=== PATIENT | female | born 1960 | race Caucasian/White ===

== ENCOUNTER 2019-08-10 14:02 | Outpatient (CLI) | payer MEDICARE, MEDICAID | END 2019-08-10 14:03 | disposition home or self-care (01) | LOC: COV 14:02 | PROVIDERS: ATTEND Family Medicine | DX: R05 Cough (principal); R50.9 Fever, unspecified ==

== ENCOUNTER 2019-11-10 14:09 | Emergency (ER) | payer MEDICAID, MEDICARE ==
[2019-11-10 14:15] VITALS: BP 107/91
--- NOTE | 2019-11-10 14:36 | ED Physician Documentation ---
History of Present Illness - Stated complaint Stated Complaint: GLF - Chief complaint Chief Complaint: General - History obtained from History obtained from: Patient - History of Present Illness Timing: Yesterday Pain level max: 5 Pain level now: 5 - Additonal information Additional information: 59-year-old female presents to the emergency department after falling in the parking lot at a [employer] yesterday. She states that she injured both of her knees, her left hand and her left arm. She states she did strike her head but no loss of consciousness. No vomiting. No headache. No altered mental status. No numbness or tingling. The knees are worse with walking and better with rest. She has an abrasion to the left knee. She also complains of bruising to the left hand and pain to the left humerus. Worse with movement and better with rest. Has not taken anything for pain. Review of Systems Constitutional: denies: Fever, Chills Cardiac: denies: Chest pain / pressure Respiratory: denies: Cough GI: denies: Vomiting, Diarrhea Skin: denies: Rash Musculoskeletal: denies: Neck pain, Back pain Neurologic: denies: Focal weakness, Numbness, Confused, Altered mental status, LOC PD PAST MEDICAL HISTORY - Past Medical History Past Medical History: No - Present Medications Home Medications: Ambulatory Orders Medication Instructions Recorded Confirmed Cholecalciferol (Vitamin D3) 2,000 unit PO DAILY 01/31/13 02/06/14 [Vitamin D] Clonazepam 0.5 mg PO QPM PRN 01/31/13 02/06/14 Hydrocodone/Acetaminophen 1 each PO Q4HR PRN 01/31/13 02/06/14 [Hydrocodon-Acetaminophen 5-325] Ibuprofen [Motrin] 800 mg PO DAILY PRN 01/31/13 02/06/14 Multivitamin [Multivitamins] 1 each PO DAILY 01/31/13 02/06/14 Omeprazole [PriLOSEC] 20 mg PO DAILY PRN 01/31/13 02/06/14 Venlafaxine HCl [Effexor Xr] 75 mg PO DAILY 01/31/13 02/06/14 Venlafaxine HCl [Effexor Xr] 150 mg PO DAILY 01/31/13 02/06/14 estradioL [Divigel] 0.5 mg TOP HS 09/17/13 09/23/14 - Allergies Allergies/Adverse Reactions: Allergies Allergy/AdvReac Type Severity Reaction Status Date / Time hayfever Allergy Intermediate Itching Uncoded 01/31/13 15:24 - Living Situation Living Arrangement: reports: At home - Family History Family history: reports: Non contributory PD ED PE NORMAL - Vitals Vital signs reviewed: Yes - General General: Alert and oriented X 3, No acute distress, Well developed/nourished - HEENT HEENT: Atraumatic (No scalp hematomas. No palpable skull fractures.), PERRL, EOMI, Ears normal, Moist mucous membranes, Pharynx benign, Dentition benign - Neck Neck: Supple, no meningeal sign, No bony TTP - Cardiac Cardiac: RRR, Strong equal pulses - Respiratory Respiratory: No respiratory distress, Clear bilaterally - Abdomen Abdomen: Soft, Non tender, Non distended - Derm Derm: Warm and dry - Extremities Extremities: Other (There is swelling and ecchymosis to the thenar eminence of the left hand. No snuffbox tenderness. No tenderness over the remainder of the. Neurovascular intact. Good range of motion. She is tender over the tibial plateaus of the bilateral knees. There is a small abrasion to the left knee. She) - Neuro Neuro: Alert and oriented X 3, flash developer 2-12 intact, No motor deficit, No sensory deficit - Psych Psych: Normal mood, Normal affect Results - Vitals Vitals: Vital Signs - 24 hr 11/10/19 14:11 Temperature 36.6 C Heart Rate 71 Respiratory 18 Rate Blood Pressure 107/91 H O2 Saturation 100 Oxygen O2 Source Room air - Rads (name of study) Left humerus x-ray Radiology: Prelim report reviewed, EMP read contemporaneously Left hand x-ray Radiology: Prelim report reviewed, EMP read contemporaneously Bilateral knee x-ray Radiology: Prelim report reviewed, EMP read contemporaneously PD MEDICAL DECISION MAKING - ED course Complexity details: reviewed results, re-evaluated patient, considered differential, d/w patient ED course: No acute findings on x-rays. Ambulating well. Tdap given. No evidence of skull fracture, intracranial hemorrhage. No evidence of cervical spine fracture. We will continue supportive care and have her reevaluated by her doctor in 1 week if not better. Patient counseled regarding signs and symptoms for which I believe and urgent re-evaluation would be necessary. Patient with good understanding of and agreement to plan and is comfortable going home at this time This document was made in part using voice recognition software. While efforts are made to proofread this document, sound alike and grammatical errors may occur. Departure - Departure Disposition: 01 Home, Self Care Clinical Impression: Fall Qualifiers: Encounter type: initial encounter Qualified Code(s): W19.XXXA - Unspecified fall, initial encounter Knee contusion Qualifiers: Encounter type: initial encounter Laterality: unspecified laterality Qualified Code(s): S80.00XA - Contusion of unspecified knee, initial encounter Abrasion of knee, left Qualifiers: Encounter type: initial encounter Qualified Code(s): S80.212A - Abrasion, left knee, initial encounter Contusion of hand, left Qualifiers: Encounter type: initial encounter Qualified Code(s): S60.222A - Contusion of left hand, initial encounter Condition: Good Instructions: ED Contusion Soft Tissue Follow-Up: Your,doctor in 1 week [Other] Comments: Your x-rays do not show any acute abnormalities today. Return if you worsen. Follow-up with your doctor for further care. You can use Motrin or Tylenol as needed for pain. Discharge Date/Time: 11/10/19 16:12
[2019-11-10] MEDS ORDERED: TETANUS/DIPHTHERIA/PERTUSSIS 0.5 ML SYRINGE IM ONE (14:51)
--- NOTE | 2019-11-10 15:15 | XRAY Report ---
PROCEDURE: Hand 3 View LT INDICATIONS: fall, hand pain TECHNIQUE: 3 views of the hand(s) acquired. COMPARISON: X-ray humerus 11/10/2019 FINDINGS: Bones: No fractures or dislocations. No suspicious bony lesions. Soft tissues: No suspicious soft tissue calcifications. IMPRESSION: No visualized acute fracture or dislocation. However, occult injury cannot be excluded. Recommend toya rt interval imaging follow-up in 7-10 days as clinically indicated for additional evaluation. Reviewed by: Shellie Martinez MD on 11/10/2019 3:13 PM PDT Approved by: Shellie Martinez MD on 11/10/2019 3:13 PM PDT Station ID: [id number]
--- NOTE | 2019-11-10 15:19 | XRAY Report ---
PROCEDURE: Knee 4 View BILAT INDICATIONS: fall, knee pain TECHNIQUE: 3 views of the bilateral knee(s) were acquired. COMPARISON: None. FINDINGS: Bones: No fractures or dislocations. No suspicious bony lesions. Soft tissues: No joint effusion. No suspicious soft tissue calcifications. IMPRESSION: No visualized acute fracture or dislocation. However, occult injury cannot be excluded. Recommend short interval imaging follow-up in 7-10 days as clinically indicated for additional evalua tion. Reviewed by: Shellie Martinez MD on 11/10/2019 3:17 PM PDT Approved by: Shellie Martinez MD on 11/10/2019 3:17 PM PDT Station ID: [id number]
--- NOTE | 2019-11-10 15:20 | XRAY Report ---
PROCEDURE: Humerus LT INDICATIONS: fall, arm pain TECHNIQUE: 2 views of the humerus were acquired. COMPARISON: None FINDINGS: Bones: No fractures or dislocations. No suspicious bony lesions. Soft tissues: No suspicious soft tissue calcifications. IMPRESSION: No visualized acute fracture or dislocation. However, occult injury cannot be excluded. Recommend toya rt interval imaging follow-up in 7-10 days as clinically indicated for additional evaluation. Reviewed by: Shellie Martinez MD on 11/10/2019 3:18 PM PDT Approved by: Shellie Martinez MD on 11/10/2019 3:18 PM PDT Station ID: [id number]
== END 2019-11-10 16:12 | disposition home or self-care (01) ==
LOC: ED 14:09
DX: S80.01XA Contusion of right knee, initial encounter (principal); S80.02XA Contusion of left knee, initial encounter; S80.212A Abrasion, left knee, initial encounter; S60.222A Contusion of left hand, initial encounter; W01.0XXA Fall on same level from slipping, tripping and stumbling without subsequent striking against object, initial encounter; Y93.01 Activity, walking, marching and hiking; Y92.512 Supermarket, store or market as the place of occurrence of the external cause; Z23 Encounter for immunization
CPT/HCPCS: 90471; 99284

== ENCOUNTER 2020-03-24 12:22 | Emergency (ER) | payer MEDICARE ==
[2020-03-24 13:31] LABS: BILIRUBIN,URINE NEGATIVE (NEGATIVE); GLUCOSE, URINE (UA) NEGATIVE (NEGATIVE); KETONES,URINE (UA) NEGATIVE (NEGATIVE); LEUKOCYTE ESTERASE, URINE NEGATIVE (NEGATIVE); NITRITE,URINE NEGATIVE (NEGATIVE); OCCULT BLOOD,URINE NEGATIVE (NEGATIVE); PROTEIN,URINE NEGATIVE (NEGATIVE); UROBILINOGEN,URINE 0.2 (NORMAL) E.U./dL (NORMAL)
[2020-03-24 13:35] LABS: CLARITY,URINE CLEAR (CLEAR)
[2020-03-24 13:36] LABS: BASOPHILS % (AUTO) 0.4 %; EOSINOPHILS % (AUTO) 0.2 %; HGB - HEMOGLOBIN 14.2 g/dL (12.0-16.0); LYMPHOCYTES # (AUTO) 1.1 10^3/uL (1.5-3.5); LYMPHOCYTES % (AUTO) 9.9 %; MEAN CORPUSCULAR HEMOGLOBIN 31.1 pg (27.0-31.0); MEAN CORPUSCULAR HGB CONC 32.7 g/dL (32.0-36.0); MEAN PLATELET VOLUME 9.4 fL (7.9-10.8); MONOCYTES % (AUTO) 9.5 %; NEUTROPHILS # (AUTO) 8.6 10^3/uL (1.5-6.6); NEUTROPHILS % (AUTO) 79.6 %; PLT - PLATELET COUNT 271 10^3/uL (130-450); RED BLOOD COUNT 4.57 10^6/uL (4.20-5.40); RED CELL DISTRIBUTION WIDTH 12.4 % (12.0-15.0); WHITE BLOOD COUNT 10.8 x10^3/uL (4.8-10.8)
[2020-03-24] MEDS ORDERED: KETOROLAC 30 MG/ML VIAL IVP STA (13:36)
[2020-03-24] MEDS ORDERED: HYDROmorphone 1 MG/ML CARPUJECT IVP STA ×2 (13:36→16:23)
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
[2020-03-24 13:46] LABS: ALBUMIN 4.1 g/dL (3.2-5.5); ALBUMIN/GLOBULIN RATIO 1.3 (1.0-2.2); BILIRUBIN,TOTAL 0.6 mg/dL (0.2-1.0); CALCIUM 8.7 mg/dL (8.5-10.3); CREATININE 0.7 mg/dL (0.4-1.0); TOTAL PROTEIN 7.3 g/dL (6.7-8.2)
[2020-03-24] MEDS ORDERED: IOVERSOL 320 100 ML VIAL IVP ONE ×2 (14:25→15:33)
[2020-03-24 15:10] VITALS: BP 128/82
--- NOTE | 2020-03-24 15:59 | CT Report ---
PROCEDURE: Abdomen/Pelvis W INDICATIONS: LLQ abdominal pain CONTRAST: IV CONTRAST: Optiray 320 ml: 100 PO CONTRAST: *NO PO CONTRAST TECHNIQUE: After the administration of intravenous contrast, 5 mm thick sections acquired from the diaphragms to the symphysis. 5 mm thick coronal and sagittal reformats were acquired. For radiation dose reducti on, the following was used: automated exposure control, adjustment of mA and/or kV according to riddhi ent size. COMPARISON: None. FINDINGS: Image quality: Excellent. ABDOMEN: Lung bases: Minimal bibasilar atelectasis. Heart size is normal. Small hiatal hernia. Solid organs: Liver and spleen are normal in size and enhancement. Approximately 2 subcentimeter hep atic hypodensities are noted in the right hepatic lobe. These are too small to accurately characteriz e but likely represent small cysts versus hemangiomas. Gallbladder is unremarkable. Biliary system i s non dilated. Pancreas enhances normally. No adrenal nodules. Kidneys demonstrate normal size and enhancement, without hydronephrosis. Peritoneum and bowel: Normal appendix. Scattered colonic diverticulosis most pronounced in the sigmo id colon. There is associated peridiverticular inflammatory stranding of the distal sigmoid colon. No evidence for perforation or abscess formation. Bowel loops demonstrate normal wall thickness and flory iber. No free fluid or air. Nodes and vessels: No retroperitoneal or mesenteric adenopathy by size criteria. Aorta and inferior vena cava are normal in size. Miscellaneous: No ventral hernias. PELVIS: Genitourinary: Bladder wall thickness is normal. Miscellaneous: No inguinal hernias or adenopathy. Bones: No suspicious bony lesions. No acute vertebral body compression fractures. IMPRESSION: Acute sigmoid colon diverticulitis. No evidence for perforation or abscess formation. Reviewed by: Coy Hunter MD on 03/24/2020 2:58 PM [place] Approved by: Coy Hunter MD on 03/24/2020 2:58 PM AKST Station ID: [id number]
[2020-03-24] MEDS ORDERED: metroNIDAZOLE 250 MG TABLET PO STA (16:11)
[2020-03-24] MEDS ORDERED: levoFLOXacin 250 MG TABLET PO STA (16:11)
== END 2020-03-24 16:40 | disposition home or self-care (01) ==
LOC: ED 12:22
DX: K57.32 Diverticulitis of large intestine without perforation or abscess without bleeding (principal); Z87.891 Personal history of nicotine dependence
CPT/HCPCS: 36415; 74177; 80053; 81003; 83690; 85025; 96374; 96376; 99284; 99285; A9270; J1170; Q9967; 81001; 87086

== ENCOUNTER 2020-07-17 11:00 | Outpatient (CLI) | payer MEDICARE, MEDICAID ==
[2020-07-17 11:19] LABS: BASOPHILS % (AUTO) 0.6 %; EOSINOPHILS % (AUTO) 0.8 %; HCT - HEMATOCRIT 44.4 % (37.0-47.0); HGB - HEMOGLOBIN 14.6 g/dL (12.0-16.0); LYMPHOCYTES # (AUTO) 1.5 10^3/uL (1.5-3.5); LYMPHOCYTES % (AUTO) 31.4 %; MEAN CORPUSCULAR HEMOGLOBIN 31.1 pg (27.0-31.0); MEAN CORPUSCULAR HGB CONC 32.9 g/dL (32.0-36.0); MEAN CORPUSCULAR VOLUME 94.7 fL (81.0-99.0); MEAN PLATELET VOLUME 8.8 fL (7.9-10.8); MONOCYTES # (AUTO) 0.4 10^3/uL (0.0-1.0); NEUTROPHILS # (AUTO) 2.8 10^3/uL (1.5-6.6); PLT - PLATELET COUNT 255 10^3/uL (130-450); RED BLOOD COUNT 4.69 10^6/uL (4.20-5.40); RED CELL DISTRIBUTION WIDTH 12.9 % (12.0-15.0); WHITE BLOOD COUNT 4.8 x10^3/uL (4.8-10.8)
[2020-07-17 11:44] LABS: ALBUMIN 4.2 g/dL (3.2-5.5); ALBUMIN/GLOBULIN RATIO 1.2 (1.0-2.2); ALKALINE PHOSPHATASE 76 IU/L (42-121); ALT ALANINE AMINOTRANSFERASE 23 IU/L (10-60); AST ASPARTATE AMINOTRANSFERASE 21 IU/L (10-42); BILIRUBIN,TOTAL 0.5 mg/dL (0.2-1.0); BUN - BLOOD UREA NITROGEN 14 mg/dL (6-20); CALCIUM 9.7 mg/dL (8.5-10.3); CARBON DIOXIDE - CO2 25 mmol/L (21-32); CHLORIDE 105 mmol/L (101-111); CHOLESTEROL 251 mg/dL; CREATININE 0.9 mg/dL (0.4-1.0); GFR - MDRD 63 (>89); GLUCOSE 101 mg/dL (70-100); HDL CHOLESTEROL 83 mg/dL; LDL CHOLESTEROL,CALCULATED 140 mg/dL; LDL/HDL RATIO 1.7 (<4.4); POTASSIUM 4.2 mmol/L (3.5-5.0); SODIUM 139 mmol/L (135-145); TOTAL PROTEIN 7.7 g/dL (6.7-8.2); TRIGLYCERIDES 142 mg/dL; VLDL CHOLESTEROL 28 mg/dL
[2020-07-17 11:51] LABS: THYROID STIMULATING HORMONE 1.42 uIU/mL (0.34-5.60)
== END 2020-07-17 11:01 | disposition home or self-care (01) ==
LOC: LAB 11:00
PROVIDERS: ATTEND Physician Assistant
DX: Z00.00 Encounter for general adult medical examination without abnormal findings (principal); E78.5 Hyperlipidemia, unspecified; K57.92 Diverticulitis of intestine, part unspecified, without perforation or abscess without bleeding; Z51.81 Encounter for therapeutic drug level monitoring; Z79.899 Other long term (current) drug therapy; F41.9 Anxiety disorder, unspecified; F32.9 Major depressive disorder, single episode, unspecified
CPT/HCPCS: 36415; 80053; 80061; 83721; 84443; 85025

== ENCOUNTER 2020-07-30 13:50 | Outpatient (CLI) | payer MEDICARE, MEDICAID | END 2020-07-30 13:51 | disposition home or self-care (01) | LOC: LAB 13:50 | PROVIDERS: ATTEND Physician Assistant | DX: N95.1 Menopausal and female climacteric states (principal) | CPT/HCPCS: 36415; 82670 ==

== ENCOUNTER 2021-08-07 08:00 | Outpatient (CLI) | payer MEDICARE, MEDICAID ==
[2021-08-07 20:40] LABS: BILIRUBIN,URINE NEGATIVE (NEGATIVE); GLUCOSE, URINE (UA) NEGATIVE (NEGATIVE); KETONES,URINE (UA) NEGATIVE (NEGATIVE); LEUKOCYTE ESTERASE, URINE TRACE (NEGATIVE); NITRITE,URINE POSITIVE (NEGATIVE); OCCULT BLOOD,URINE NEGATIVE (NEGATIVE); PROTEIN,URINE NEGATIVE (NEGATIVE); UROBILINOGEN,URINE 0.2 (NORMAL) E.U./dL (NORMAL)
[2021-08-07 21:01] LABS: BACTERIA,URINE Many /HPF (None Seen); CLARITY,URINE HAZY (CLEAR); RBC,URINE 0-5 /HPF (0-5); SQUAMOUS EPITHELIAL CELL,UR FEW Squamous (<= Few)
== END 2021-08-07 23:59 | disposition home or self-care (01) ==
LOC: LAB 08:00
PROVIDERS: ATTEND Internal Medicine
DX: R30.0 Dysuria (principal)
CPT/HCPCS: 81001; 81003; 87086; 87181

== ENCOUNTER 2021-08-08 11:03 | Outpatient (CLI) | payer MEDICARE, MEDICAID ==
[2021-08-08 11:15] LABS: BASOPHILS % (AUTO) 0.5 %; EOSINOPHILS # (AUTO) 0.1 10^3/uL (0.0-0.7); EOSINOPHILS % (AUTO) 1.1 %; HCT - HEMATOCRIT 43.9 % (37.0-47.0); HGB - HEMOGLOBIN 14.5 g/dL (12.0-16.0); LYMPHOCYTES # (AUTO) 1.4 10^3/uL (1.5-3.5); LYMPHOCYTES % (AUTO) 32.4 %; MEAN CORPUSCULAR HEMOGLOBIN 31.2 pg (27.0-31.0); MEAN CORPUSCULAR VOLUME 94.4 fL (81.0-99.0); MONOCYTES # (AUTO) 0.4 10^3/uL (0.0-1.0); MONOCYTES % (AUTO) 9.3 %; NEUTROPHILS # (AUTO) 2.5 10^3/uL (1.5-6.6); NEUTROPHILS % (AUTO) 56.5 %; PLT - PLATELET COUNT 274 10^3/uL (130-450); RED BLOOD COUNT 4.65 10^6/uL (4.20-5.40); RED CELL DISTRIBUTION WIDTH 12.6 % (12.0-15.0); WHITE BLOOD COUNT 4.4 x10^3/uL (4.8-10.8)
[2021-08-08 11:35] LABS: ALBUMIN 4.5 g/dL (3.2-5.5); ALBUMIN/GLOBULIN RATIO 1.6 (1.0-2.2); ALKALINE PHOSPHATASE 63 IU/L (42-121); ALT ALANINE AMINOTRANSFERASE 62 IU/L (10-60); AST ASPARTATE AMINOTRANSFERASE 42 IU/L (10-42); BILIRUBIN,TOTAL 0.6 mg/dL (0.2-1.0); BUN - BLOOD UREA NITROGEN 19 mg/dL (6-20); CARBON DIOXIDE - CO2 26 mmol/L (21-32); CHLORIDE 100 mmol/L (101-111); CHOL/HDL RATIO 3.3 (<4.4); CHOLESTEROL 286 mg/dL; CREATININE 0.9 mg/dL (0.4-1.0); GFR - MDRD 63 (>89); GLUCOSE 107 mg/dL (70-100); HDL CHOLESTEROL 88 mg/dL; LDL CHOLESTEROL,CALCULATED 174 mg/dL; POTASSIUM 4.1 mmol/L (3.5-5.0); SODIUM 139 mmol/L (135-145); TOTAL PROTEIN 7.4 g/dL (6.7-8.2); TRIGLYCERIDES 122 mg/dL; VLDL CHOLESTEROL 24 mg/dL
[2021-08-08 11:45] LABS: THYROID STIMULATING HORMONE 1.46 uIU/mL (0.34-5.60)
== END 2021-08-08 11:04 | disposition home or self-care (01) ==
LOC: LAB 11:03
PROVIDERS: ATTEND Internal Medicine
DX: R63.5 Abnormal weight gain (principal); R53.83 Other fatigue; Z79.899 Other long term (current) drug therapy; E78.5 Hyperlipidemia, unspecified
CPT/HCPCS: 36415; 80053; 80061; 83721; 84443; 85025

== ENCOUNTER 2021-08-26 09:16 | Day surgery (SDC) | payer MEDICARE, MEDICAID ==
[2021-08-26] MEDS ORDERED: LACTATED RINGERS 1,000 ML IV ONE ×2 (09:20→10:53)
[2021-08-26] MEDS ORDERED: PROPOFOL 500 MG/50 ML 500 MG/50 ML VIAL ONE (10:03)
--- NOTE | 2021-08-26 10:04 | ANESTHESIA ---
Pre-Anesthesia VS, & Labs - Diagnosis screening - Procedure colonoscopy Vital Signs: Temp Pulse Resp BP Pulse Ox 36.2 C L 88 16 119/84 H 99 08/26/21 09:20 08/26/21 09:20 08/26/21 09:20 08/26/21 09:20 08/26/21 09:20 Height: 5 ft 3 in Weight (kg): 79.5 kg Body Mass Index: 31.0 BMI Classification: Obese - NPO >8 hours - Is Patient ?: No Home Medications and Allergies Home Medications: Ambulatory Orders hydrOXYzine HCL [Hydroxyzine HCl] 12.5 mg PO QPM 08/25/21 Omeprazole [PriLOSEC] 20 mg PO DAILY PRN 01/31/13 Venlafaxine HCl [Effexor Xr] 150 mg PO DAILY 01/31/13 hydrOXYzine HCL [Hydroxyzine HCl] 12.5 mg PO QPM 08/25/21 Allergies/Adverse Reactions: Allergies Allergy/AdvReac Type Severity Reaction Status Date / Time codeine AdvReac Nausea Verified 08/26/21 09:40 hayfever Allergy Intermediate Itching Uncoded 01/31/13 15:24 Anes History & Medical History - Anesthetic History Anesthesia Complications: reports: No previous complications - Medical History Cardiovascular: reports: None Pulmonary: reports: None Gastrointestinal: reports: Diverticulitis Urinary: reports: Other Neuro: reports: Migraines Musculoskeletal: reports: Osteoarthritis Endocrine/Autoimmune: reports: None Blood Disorders: reports: Anemia Skin: reports: None Smoking Status: Former smoker - Surgical History General: reports: Colonoscopy Eyes Ears Nose Throat (EENT): reports: Myringotomy (tubes) Gynecologic: reports: Hysterectomy Exam General: Alert, Oriented x3 Dental: WNL Mouth Opening: Greater than 4 Fingerbreadths Mallampati classification: II Thyromental Distance: greater than 6 cm Respiratory: Lungs clear Cardiovascular: Regular rate Plan Anesthesia Type: Total IV Consent for Procedure(s) Verified and Reviewed: Yes Code Status: Attempt Resuscitation ASA classification: 2-Mild systemic disease Is this case an emergency?: No
[2021-08-26] MEDS ORDERED: MIDAZOLAM 2 MG/2 ML VIAL ONE (10:29)
[2021-08-26] MEDS ORDERED: fentaNYL 100 MCG/2 ML VIAL ONE (10:29)
[2021-08-26 11:26] VITALS: BP 102/66
--- NOTE | 2021-08-26 13:16 | ANESTHESIA POST OP EVALUATION ---
Anesthesia Post Eval - Post Anesthesia Eval Vitals: Last Vital Signs Temp 36.5 C 08/26/21 11:20 Pulse 65 08/26/21 11:20 Resp 14 08/26/21 11:20 BP 102/66 08/26/21 11:20 Pulse Ox 97 08/26/21 11:20 CV Function Including HR & BP: Stable Pain Control: Satisfactory Nausea & Vomiting: Negative Mental Status: Baseline Respiratory Status: Airway Patent Hydration Status: Satisfactory Anesthesia Complications: None
== END 2021-08-26 09:17 | disposition home or self-care (01) ==
LOC: SDS 09:16
PROVIDERS: ATTEND Surgery
PROC: 0DBH8ZZ Excision of Cecum, Via Natural or Artificial Opening Endoscopic (ICD-10-PCS; principal; 2021-08-26 10:30)
DX: K52.9 Noninfective gastroenteritis and colitis, unspecified (principal); D12.0 Benign neoplasm of cecum; K64.8 Other hemorrhoids; K57.30 Diverticulosis of large intestine without perforation or abscess without bleeding; E66.9 Obesity, unspecified; Z68.31 Body mass index [BMI] 31.0-31.9, adult; Z87.891 Personal history of nicotine dependence; G89.29 Other chronic pain
CPT/HCPCS: 45380; J7120

== ENCOUNTER 2023-04-19 14:45 | Outpatient (CLI) | payer MEDICARE, MEDICAID | END 2023-04-19 15:00 | disposition home or self-care (01) | LOC: LAB.N 14:45 | PROVIDERS: ATTEND Nurse Practitioner | DX: R30.0 Dysuria (principal) | CPT/HCPCS: 87086; 87181 ==

== ENCOUNTER 2023-05-20 11:21 | Outpatient (CLI) | payer MEDICARE, MEDICAID ==
[2023-05-20 11:35] LABS: BASOPHILS % (AUTO) 0.6 %; EOSINOPHILS % (AUTO) 0.9 %; HCT - HEMATOCRIT 44.4 % (37.0-47.0); HGB - HEMOGLOBIN 14.7 g/dL (12.0-16.0); LYMPHOCYTES % (AUTO) 43.4 %; MEAN CORPUSCULAR HEMOGLOBIN 31.3 pg (27.0-31.0); MEAN CORPUSCULAR HGB CONC 33.1 g/dL (32.0-36.0); MEAN CORPUSCULAR VOLUME 94.5 fL (81.0-99.0); MEAN PLATELET VOLUME 8.5 fL (7.9-10.8); MONOCYTES # (AUTO) 0.4 10^3/uL (0.0-1.0); MONOCYTES % (AUTO) 8.9 %; NEUTROPHILS # (AUTO) 2.2 10^3/uL (1.5-6.6); NEUTROPHILS % (AUTO) 46.2 %; PLT - PLATELET COUNT 292 10^3/uL (130-450); WHITE BLOOD COUNT 4.7 x10^3/uL (4.8-10.8)
[2023-05-20 12:08] LABS: ALBUMIN 4.7 g/dL (3.2-5.5); ALBUMIN/GLOBULIN RATIO 1.6 (1.0-2.2); ALKALINE PHOSPHATASE 58 IU/L (42-121); ALT ALANINE AMINOTRANSFERASE 17 IU/L (10-60); AST ASPARTATE AMINOTRANSFERASE 18 IU/L (10-42); BILIRUBIN,TOTAL 0.3 mg/dL (0.2-1.0); BUN - BLOOD UREA NITROGEN 11 mg/dL (6-20); CALCIUM 9.6 mg/dL (8.5-10.3); CARBON DIOXIDE - CO2 29 mmol/L (21-32); CHLORIDE 104 mmol/L (101-111); CHOL/HDL RATIO 3.4 (<4.4); CHOLESTEROL 280 mg/dL; CREATININE 0.9 mg/dL (0.6-1.3); GFR - MDRD 63 (>89); GLUCOSE 98 mg/dL (74-104); HDL CHOLESTEROL 83 mg/dL; LDL CHOLESTEROL,CALCULATED 169 mg/dL; POTASSIUM 4.4 mmol/L (3.5-4.5); SODIUM 139 mmol/L (135-145); TOTAL PROTEIN 7.6 g/dL (6.4-8.9); TRIGLYCERIDES 140 mg/dL (48-352); VLDL CHOLESTEROL 28 mg/dL
[2023-05-20 12:15] LABS: THYROID STIMULATING HORMONE 1.74 uIU/mL (0.34-5.60)
== END 2023-05-20 11:22 | disposition home or self-care (01) ==
LOC: LAB 11:21
PROVIDERS: ATTEND Physician Assistant
DX: Z00.00 Encounter for general adult medical examination without abnormal findings (principal)
CPT/HCPCS: 36415; 80053; 80061; 83721; 84443; 85025

== ENCOUNTER 2023-12-10 12:59 | Emergency (ER) | payer MEDICARE, MEDICAID ==
[2023-12-10 13:07] VITALS: O2SAT 100
[2023-12-10 13:21] LABS: BASOPHILS % (AUTO) 0.4 %; EOSINOPHILS % (AUTO) 0.3 %; HGB - HEMOGLOBIN 13.8 g/dL (12.0-16.0); LYMPHOCYTES # (AUTO) 1.6 10^3/uL (1.5-3.5); LYMPHOCYTES % (AUTO) 21.2 %; MEAN CORPUSCULAR HEMOGLOBIN 30.7 pg (27.0-31.0); MEAN CORPUSCULAR HGB CONC 32.9 g/dL (32.0-36.0); MEAN CORPUSCULAR VOLUME 93.5 fL (81.0-99.0); MONOCYTES # (AUTO) 0.4 10^3/uL (0.0-1.0); NEUTROPHILS # (AUTO) 5.3 10^3/uL (1.5-6.6); NEUTROPHILS % (AUTO) 71.8 %; PLT - PLATELET COUNT 280 10^3/uL (130-450); RED BLOOD COUNT 4.49 10^6/uL (4.20-5.40); RED CELL DISTRIBUTION WIDTH 12.4 % (12.0-15.0); WHITE BLOOD COUNT 7.3 x10^3/uL (4.8-10.8)
--- NOTE | 2023-12-10 13:41 | ED Physician Documentation ---
History of Present Illness - Stated complaint Stated Complaint: CT SCAN - Chief complaint Chief Complaint: Abd Pain - History obtained from History obtained from: Patient - History of Present Illness Timing: Prior to arrival - Additonal information Additional information: Patient is a 63-year-old female with past medical history of diverticulitis presents to the emergency department with abdominal cramping and bright red blood in her stool. She notes symptoms started around 4:30 in the morning on . She notes she had severe abdominal cramping and then passed about a tablespoon of bright red blood. She notes she has been unable to have a normal bowel movement since then. She notes severe abdominal cramping associated with her symptoms. She notes no pain unless she is having this cramping and then will have a bowel movement she notes about 6-7 episodes of this. She notes she had diverticulitis a few years ago symptoms feel similar but about 10 times worse. She denies any nausea or vomiting associated with her symptoms. She notes she has not eaten any nuts or popcorn that could have precipitated her symptoms. She denies any fevers or chills no unilateral abdominal pain. She has been eating and drinking significantly less as this seems to worsen the cramping. 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 HEENT: Other - Present Medications Home Medications: Ambulatory Orders Medication Instructions Recorded Confirmed Omeprazole [PriLOSEC] 20 mg PO DAILY PRN 01/31/13 08/25/21 Venlafaxine HCl [Effexor Xr] 150 mg PO DAILY 01/31/13 08/25/21 hydrOXYzine HCL [Hydroxyzine HCl] 12.5 mg PO QPM 08/25/21 08/25/21 Dicyclomine [Bentyl] 1 - 2 tab PO QID PRN #20 cap 12/10/23 Hydrocortisone [Anusol-Hc] 30 gm RC BID 10 Days #30 gm 12/10/23 polyethylene glycoL 3350(BULK) 17 gm PO DAILY PRN #1 each 12/10/23 [Miralax] - Allergies Allergies/Adverse Reactions: Allergies Allergy/AdvReac Type Severity Reaction Status Date / Time codeine AdvReac Nausea Verified 12/10/23 13:11 hayfever Allergy Intermediate Itching Uncoded 12/10/23 13:11 - Social History Does the pt smoke?: No Smoking Status: Never smoker Does the pt drink ETOH?: Yes Does the pt have substance abuse?: Yes - Immunizations Immunizations are current?: Yes - POLST Patient has POLST: No PD ED PE NORMAL - Vitals Vital signs reviewed: Yes - General General: Alert and oriented X 3 - HEENT HEENT: Atraumatic - Neck Neck: Supple, no meningeal sign - Cardiac Cardiac: RRR, No murmur, No gallop - Respiratory Respiratory: No respiratory distress - Abdomen Abdomen: Normal bowel sounds, Soft, Non distended (Reproducible lower abdominal tenderness on examination no specific guarding or rebound on examination. No Rovsing's sign or CVA tenderness appreciated.), Other (Rectal exam at deferred at this time) - Female Female : Deferred - Back Back: No CVA TTP - Derm Derm: Normal color - Extremities Extremities: No deformity - Neuro Neuro: Alert and oriented X 3 Results - Vitals Vitals: Vital Signs - 24 hr 12/10/23 12/10/23 13:03 15:06 Temperature 36.5 C Heart Rate 82 75 Respiratory 16 16 Rate Blood Pressure 124/67 133/86 H O2 Saturation 100 100 Oxygen O2 Source Room air - Labs Labs: Laboratory Tests 12/10/23 12/10/23 13:15 13:15 WBC 7.3 RBC 4.49 Hgb 13.8 Hct 42.0 MCV 93.5 MCH 30.7 MCHC 32.9 RDW 12.4 Plt Count 280 MPV 9.0 Neut # (Auto) 5.3 Lymph # (Auto) 1.6 Spink # (Auto) 0.4 Eos # (Auto) 0.0 Baso # (Auto) 0.0 Absolute Nucleated RBC 0.00 Nucleated RBC % 0.0 Sodium 137 Potassium 4.4 Chloride 103 Carbon Dioxide 28 Anion Gap 6.0 BUN 14 Creatinine 0.9 Estimated GFR (MDRD) 63 L Glucose 85 Calcium 9.9 Total Bilirubin 0.4 AST 17 ALT 15 Alkaline Phosphatase 66 Total Protein 7.4 Albumin 4.7 Globulin 2.7 Albumin/Globulin Ratio 1.7 Lipase 26 PD Medical Decision Making - ED course ED course: Patient is a 63-year-old female presenting to the emergency department with abdominal pain and cramping. Patient presents with bright red blood in her stool she notes symptoms have been going on for the past few hours. She notes pain 10 out of 10 but resolves after she has a bowel movement is mainly bright red blood. She denies any dizziness lightheadedness no shortness of breath associate with symptoms. Vitals are stable on arrival patient is normotensive nontachycardic. Physical exam shows no normal active bowel sounds. Lower abdominal tenderness with mild guarding no specific rebound. Rectal exam performed does show external hemorrhoid nonbleeding nonthrombosed. Guaiac test is negative here in the emergency department. Labs obtained showing no significant leukocytosis hemoglobin is stable no specific drop in hemoglobin concerning for anemia. Patient eating and drinking here in the emergency department without difficulty. CT abdomen pelvis obtained showing no acute findings. Mild diverticulosis noted but no signs of diverticulitis. No renal stone no hydronephrosis. Patient updated on reassuring findings discussed with patient symptoms could be secondary to small diverticular bleed however reassuring findings here suggest stable findings additionally discussed with patient symptoms could be secondary to gastroenteritis patient tolerating p.o. here will send home with MiraLAX Bentyl and hemorrhoid cream to see if this will help her symptoms. She will follow-up with her PCP in outpatient setting instructed patient to return with any dizziness lightheadedness shortness of breath persistent bleeding abdominal cramping or any other new or worsening symptoms. Patient understands and is agreeable with this plan. Departure - Departure Disposition: 01 Home, Self Care Clinical Impression: Abdominal cramping Condition: Good Instructions: ED Abdominal Pain Female Non-Specific Abdominal Pain Comments: Your labs are reassuring here in the emergency department sent medications to your pharmacy to see if this will help with your symptoms return with any persistent rectal bleeding dizziness lightheadedness worsening abdominal cramping or fevers. Forms: PCP List
[2023-12-10 13:52] LABS: ALBUMIN 4.7 g/dL (3.2-5.5); ALBUMIN/GLOBULIN RATIO 1.7 (1.0-2.2); BILIRUBIN,TOTAL 0.4 mg/dL (0.2-1.0); CALCIUM 9.9 mg/dL (8.5-10.3); CREATININE 0.9 mg/dL (0.6-1.3); POTASSIUM 4.4 mmol/L (3.5-4.5); TOTAL PROTEIN 7.4 g/dL (6.4-8.9)
[2023-12-10] MEDS ORDERED: iohexoL-300 100 ML VIAL ONE (15:16)
--- NOTE | 2023-12-10 16:00 | CT Report ---
PROCEDURE: Abdomen/Pelvis W INDICATIONS: lower abdominal pain hx of diverticulitis CONTRAST: 100ml omni 300 TECHNIQUE: After the administration of intravenous contrast, a CT scan of the abdomen and pelvis was performed. Images were recorded and evaluated at appropriate window settings. Reformats: coronal and sagittal. F or radiation dose reduction, the following was used: automated exposure control, adjustment of mA and /or kV according to patient size. COMPARISON: 03/24/2020. FINDINGS: Image quality: Diagnostic. Lower chest: Unremarkable. Liver: No solid mass. Gallbladder: No radiopaque stones or wall thickening. Biliary tree: No intrahepatic or extrahepatic dilation, accounting for age. Spleen: No splenomegaly. Pancreas: No pancreatic ductal dilation. Adrenals: No adrenal nodule. Kidneys and ureters: No hydronephrosis. No renal cystic lesion which requires follow up. No solid mas s. Stomach, bowel and peritoneum: No gastric or small bowel dilation. No abnormal wall thickening. No pa thologic free fluid. Mild colonic diverticulosis is seen without CT evidence of acute diverticulitis. No abscess collection. No peritoneal free air. Lymph nodes: No central or retroperitoneal adenopathy. Vessels: No infrarenal aortic aneurysm. Patent portal vein. PELVIS Reproductive organs: Unremarkable. Bladder: No abnormal wall thickening, accounting for underdistention. Pelvic lymph nodes: No pelvic adenopathy by size criteria. Bones: No aggressive osseous abnormality. Other: No significant ventral or inguinal hernia. IMPRESSION: 1. No bowel obstruction or abnormal bowel wall thickening. Mild distal descending colon and sigmoid c olon diverticulosis without CT evidence of acute diverticulitis. No abscess collection. No free fluid of free air. 2. No obstructing renal stone or hydronephrosis. Reviewed by: Vinicius Doty MD on 12/10/2023 3:58 PM PDT Approved by: Vinicius Doty MD on 12/10/2023 3:58 PM PDT Station ID: [id number]
[2023-12-10 17:22] VITALS: BP 129/81
[2023-12-10] MEDS: iohexoL-300 100 ML VIAL IVP ONE (19:13)
== END 2023-12-10 17:14 | disposition home or self-care (01) ==
LOC: ED 12:59
DX: R10.9 Unspecified abdominal pain (principal); K57.30 Diverticulosis of large intestine without perforation or abscess without bleeding; K62.5 Hemorrhage of anus and rectum
CPT/HCPCS: 36415; 74177; 80053; 82272; 83690; 85025; 99283; 99284; Q9967